=== PATIENT | male | born 1950 | race Hispanic/Latino ===

== ENCOUNTER 2018-06-12 05:51 | Day surgery (SDC) | payer MEDICARE ==
[2018-06-12] MEDS ORDERED: ECOTRIN PO ONE ×2 (06:21→06:31)
[2018-06-12] MEDS ORDERED: NACL 0.9% 500 ML 500 ML ONE ×2 (06:31→08:31)
[2018-06-12] MEDS ORDERED: NACL 0.9% 500 ML 500 ML IV SCH (07:00)
[2018-06-12] MEDS ORDERED: XYLOCAINE 2% INFILTRATI ONE ×2 (08:30→09:04)
[2018-06-12] MEDS ORDERED: CALAN ONE (08:30)
[2018-06-12] MEDS ORDERED: HEPARIN/NS 5000 UNIT/500ML(CATH LAB) 1,000 ML IR ONE (08:30)
[2018-06-12] MEDS ORDERED: HEPARIN 10,000 UNITS/10 ML ONE ×2 (08:30→09:18)
[2018-06-12] MEDS ORDERED: NITROGLYCERIN SYRINGE 3 ML ONE (08:31)
[2018-06-12] MEDS: SUBLIMAZE ONE ×3 (09:00→09:05)
[2018-06-12] MEDS: VERSED ONE ×2 (09:04→09:05)
[2018-06-12] MEDS ORDERED: NORCO 5/325 PO PRN (10:05)
--- NOTE | 2018-06-12 10:08 | Short Stay Summary ---
Short Stay Documentation Date of service: 06/12/18 - History H&P: obtained from office - Allergies and Medications Current Medications: Allergies No Known Allergies Allergy (Verified 06/12/18 06:28) Home Medications Medication Instructions Recorded Confirmed Last Taken Type Aspirin [Aspirin TAB] 325 mg PO QDAY 06/12/18 06/12/18 06/11/18 History FLUoxetine [PROzac] 20 mg PO QDAY 06/12/18 06/12/18 06/11/18 History Furosemide [Lasix TAB] 40 mg PO QDAY 06/12/18 06/12/18 06/11/18 History Gabapentin [Neurontin] 300 mg PO Q8HR 06/12/18 06/12/18 06/11/18 History Isosorbide Dinitrate [Isordil 20 mg PO BID 06/12/18 06/12/18 06/11/18 History Titradose] Losartan [Cozaar] 50 mg PO QDAY 06/12/18 06/12/18 06/11/18 History Meclizine [Antivert] 25 mg PO TID PRN 06/12/18 06/12/18 Unknown History Metformin HCl [Metformin HCl ER] 1,000 mg PO BID 06/12/18 06/12/18 06/11/18 History Metoprolol [Lopressor TAB] 50 mg PO BID 06/12/18 06/12/18 06/11/18 History NovoLIN 70/30 80 units SQ BID 06/12/18 06/12/18 06/11/18 History Pantoprazole [Protonix] 40 mg PO QDAY 06/12/18 06/12/18 06/11/18 History Pravastatin [Pravachol (Nf)] 40 mg PO QHS 06/12/18 06/12/18 06/11/18 History metOLazone [Metolazone] 5 mg PO DAILY 06/12/18 06/12/18 06/11/18 History Active Medications Sodium Chloride (Nacl 0.9% 500 Ml) 500 mls @ 50 mls/hr IV DIRECT BREEZY Stop: 06/12/18 16:59 Last Admin: 06/12/18 07:45 Dose: 50 mls/hr Documented by: - Brief post op/procedure progress note Date of procedure: 06/12/18 Pre-op diagnosis: chest pain and sob Post-op diagnosis: same Procedure: see report Anesthesia: local Estimated blood loss: none - Disposition Condition at discharge: Good - Discharge Diagnoses (1) CAD (coronary artery disease) Status: Acute Qualifiers: Coronary Disease-Associated Artery/Lesion type: [place] artery Associated angina: with stable angina (2) Hypertension Status: Chronic Qualifiers: Hypertension type: essential hypertension Qualified Code(s): I10 - [place] t[place] (primary) hypertension (3) Hyperlipemia, mixed Status: Chronic (4) Diabetes 1.5, managed as type 1 Status: Chronic (5) COPD (chronic obstructive pulmonary disease) Status: Chronic Qualifiers: Emphysema type: unspecified Short Stay Discharge Plan Activity: advance as tolerated Diet: low fat, low cholesterol, low salt, diabetic Wound: keep clean and dry Special Instructions: hold Metformin (for two days) Follow up with: JORDEN AVILA MD [Primary Care Provider] - 7 Days
--- NOTE | 2018-06-12 12:34 | Cardiac Catherization Report ---
LEFT HEART CATHETERIZATION WITH INTRAVASCULAR ULTRASOUND CLINICAL INFORMATION: This is a 68-year-old gentleman with respiratory failure, on oxygen, has known coronary artery disease in 2007 had PCI of the RCA and LAD with drug-eluting stents and then again in 2008 an LAD stent. Cardiac catheterization in 2017 revealed 50% LAD stenosis and circ stenosis and left main 20%. The patient presents with chest pain with shortness of breath. Has hypertension, hyperlipidemia, diabetic. So procedure was done with moderate sedation, 0.5 mg Versed and 50 mcg of fentanyl was given. Total sedation time was 21 minutes, started at 9:05 a.m. and finished at 9:26 a.m. FINDINGS: 1. Left heart catheterization performed via the right radial artery, sterile technique, local anesthesia, 6-[place] radial sheath inserted. 2. Left system engaged with JL3.5 catheter. There is mild catheter dampening. Left main is a medium caliber vessel that is calcified and patent with diffuse 10-20%, then it bifurcates into a medium caliber LAD and has an ostial 80-90% lesion with proximal stent patent. Then after proximal stent, there was another 50% LAD lesion. The stent placed was patent then after that has 90% lesion. Rest of the LAD is patent, small diagonals. Circumflex ostial has an 80-90% lesion then the stent is patent then goes into the small OM1, OM2 that is patent. RCA is a large dominant vessel engaged with JR4. Proximal 50% at the bend and then the distal stent is patent, bifurcates into a large caliber PDA. PLV is patent with mild luminal irregularities, normal LV function, EF 55-60%, LVP 21 mmHg, LV is 160. Aortic is 152/60. No gradient across the aortic valve on pullback. Intravascular ultrasound of the left main and LAD: 1. Engaged the left system with JL3.5 with side holes. 2. Crossed into the distal LAD with short [place] wire. 3. Calcified vessel with calcified ostial and proximal LAD with a plaque burden of 80%, MLA of 3 mm2. Left main distal has a calcified vessel with an MLA of 6 mm2. Catheter and IVUS removed. Multiple angiograms with continued HAKAN 3 flow. No dissection or perforation and same stenosis. 4. 6-[place] guiding catheter taken over guidewire, 6-[place] radial sheath was discontinued, radial band applied. No hematoma, no bleeding. SUMMARY: 1. Left main distal 50% with MLA of 6 mm2. LAD calcified with ostial 80-90% with an MLA of 3 mm2. Stent patent in the mid stents and then after the last stent, there was 80% lesion LAD. Circumflex ostial proximal is 89% with stent patent with small OM1, OM2, and RCA proximal 90%, distal stent patent with patent PLV and PDA with normal LV function. 2. The patient will be referred to [place] for bypass surgery versus rotational atherectomy of the left main, LAD, and circumflex for high risk stenting. Discussed in detail with the patient and the patient's family. JOB# [id number] LEOLA/JOAQUIN
[2018-06-12 13:24] VITALS: BP 163/70
== END 2018-06-12 14:00 | disposition home or self-care (01) ==
LOC: CATHLABREC 05:51
PROVIDERS: ATTEND Internal Medicine
DX: I25.10 Atherosclerotic heart disease of native coronary artery without angina pectoris (principal); I10 Essential (primary) hypertension; E78.5 Hyperlipidemia, unspecified; E11.9 Type 2 diabetes mellitus without complications; E78.2 Mixed hyperlipidemia; J44.9 Chronic obstructive pulmonary disease, unspecified; G47.30 Sleep apnea, unspecified; K21.9 Gastro-esophageal reflux disease without esophagitis; M19.90 Unspecified osteoarthritis, unspecified site; F32.9 Major depressive disorder, single episode, unspecified; Z98.890 Other specified postprocedural states; Z79.899 Other long term (current) drug therapy; Z79.84 Long term (current) use of oral hypoglycemic drugs; Z79.82 Long term (current) use of aspirin; Z87.891 Personal history of nicotine dependence; Z98.42 Cataract extraction status, left eye; Z95.5 Presence of coronary angioplasty implant and graft; Z85.46 Personal history of malignant neoplasm of prostate; Z87.442 Personal history of urinary calculi; Z85.89 Personal history of malignant neoplasm of other organs and systems
CPT/HCPCS: 82962; 85347; 92978; 93005; 93010; 93458; 99156; C1753; C1769; C1887; C1894; J1644; J2250; J3010; J7040; Q9967